=== PATIENT | female | born 1940 | race Caucasian/White ===

== ENCOUNTER 2022-03-19 08:01 | Inpatient (IN) | payer MEDICARE ==
[~2022-03-19] VITALS: Ht 165.1 cm; Wt 88.9 kg
[2022-03-19] MEDS ORDERED: ACETAMINOPHEN 500 MG TABLET ONE (08:14)
[2022-03-19] MEDS ORDERED: ONDANSETRON ODT 4MG TAB ONE (08:15)
[2022-03-19] MEDS ORDERED: ACETAMINOPHEN 500 MG TABLET PO ONE (08:30)
[2022-03-19 08:36] LABS: BASOPHILS % (AUTO) 0.4 % (0.0-5.0); EOSINOPHILS % (AUTO) 0.4 % (0.0-8.0); HEMATOCRIT 33.9 % (36-48); LYMPHOCYTES % (AUTO) 11.9 % (21.0-51.0); MEAN CORPUSCULAR HEMOGLOBIN 29.6 pg (27.0-33.0); MEAN CORPUSCULAR HGB CONC 34.2 g/dL (32.0-36.0); MEAN CORPUSCULAR VOLUME 86.5 fL (79-99); MONOCYTES % (AUTO) 8.8 % (3.0-13.0); NEUTROPHILS % (AUTO) 77.2 % (40.0-77.0); PLATELET COUNT (AUTO) 267 K/uL (130-400); RED BLOOD CELL COUNT(AUTO) 3.92 MIL/uL (4.00-5.50); RED CELL DISTRIBUTION WIDTH 13.5 % (11.0-15.5); WHITE BLOOD COUNT (AUTO) 15.6 K/uL (4.8-10.8)
[2022-03-19 08:57] LABS: CREATININE 1.1 mg/dL (0.5-1.5); POTASSIUM 3.6 mmol/L (3.5-5.1)
[2022-03-19 09:01] LABS: ALBUMIN 2.7 g/dL (3.5-5.0); TOTAL PROTEIN, SERUM 7.4 g/dL (6.0-8.3)
[2022-03-19] MEDS ORDERED: 0.9%NACL 1000ML 1,000 ML IV ONE ×2 (09:30→10:00)
[2022-03-19] MEDS ORDERED: IBUPROFEN 600 MG TABLET PO ONE (09:30)
[2022-03-19] MEDS ORDERED: CEFTRIAXONE 1G VIAL IVP STA (09:34)
[2022-03-19] MEDS ORDERED: SOLU-MEDROL 125MG VIAL IVP STA (09:34)
[2022-03-19] MEDS ORDERED: IPRATROPIUM 0.5 MG/2.5 ML INH IH STA (09:34)
[2022-03-19] MEDS ORDERED: AZITHROMYCIN 500MG+NS 250ML IVPB SCH (09:34)
[2022-03-19] MEDS ORDERED: ALBUTEROL 0.083% 2.5 MG/3 ML INH IH STA (09:34)
[2022-03-19] MEDS ORDERED: 0.9%NACL 1000ML 1,000 ML IV SCH (10:00)
[2022-03-19] MEDS ORDERED: ACETAMINOPHEN 500 MG TABLET PO PRN (10:30)
[2022-03-19] MEDS ORDERED: BUDESONIDE 0.5 MG/2 ML INH IH SCH (10:30)
[2022-03-19] MEDS ORDERED: ONDANSETRON 4MG INJ IVP PRN (10:30)
[2022-03-19 10:57] LABS: INR 0.99 (0.85-1.15); PROTHROMBIN TIME 10.8 SEC (9.6-11.6)
[2022-03-19 10:58] LABS: PARTIAL THROMBOPLASTIN TIME 23.7 SEC (26.3-35.5)
[2022-03-19] MEDS: Vitamin B Complex/Vit C/Folic Acid PO SCH (11:02)
[2022-03-19] MEDS: 0.9%NACL 1000ML 1,000 ML IV SCH (11:03)
[2022-03-19 11:15] LABS: THYROID STIMULATING HORMONE 2.62 uIU/mL (0.36-3.74)
[2022-03-19 11:42] LABS: CRP QUANTITATIVE 361.2 mg/L (0.00-9.0)
[2022-03-19] MEDS: ALBUTEROL 0.083% 2.5 MG/3 ML INH IH SCH ×3 (12:00→23:03)
[2022-03-19] MEDS ORDERED: MAGNESIUM 2GM PREMIX 50ML 50 ML IV SCH (12:00)
[2022-03-19] MEDS: IPRATROPIUM 0.5 MG/2.5 ML INH IH SCH ×3 (12:00→23:03)
[2022-03-19 12:01] LABS: HEMOGLOBIN A1C 6.5 % (4.0-6.0)
[2022-03-19] MEDS: CEFEPIME HCL 2 GM VIAL IVP SCH ×2 (12:55→20:33)
[2022-03-19] MEDS ORDERED: SIMV10TA97 PO (13:51)
[2022-03-19] MEDS ORDERED: LOSA1TAB37 PO (13:51)
[2022-03-19] MEDS ORDERED: LEVO50CA4 PO (13:51)
[2022-03-19 15:43] LABS: APPEARANCE,URINE CLOUDY (CLEAR); BILIRUBIN,URINE NEGATIVE (NEGATIVE); COLOR,URINE YELLOW (YELLOW); GLUCOSE, URINE (UA) NEGATIVE (NEGATIVE); KETONES,URINE 5 mg/dL (NEGATIVE); LEUKOCYTE ESTERASE ,URINE 500 Leu/uL (NEGATIVE); NITRATE,URINE NEGATIVE (NEGATIVE); OCCULT BLOOD,URINE MODERATE (NEGATIVE); PH,URINE 5.5 (5.0-8.0); PROTEIN,URINE 30 mg/dL (NEGATIVE); UROBILINOGEN,URINE 0.2 mg/dL (0.2-1.0)
[2022-03-19 15:46] LABS: BACTERIA,URINE RARE /HPF (None Seen); MUCUS,URINE RARE LPF (None Seen); SQUAMOUS EPITHELIAL CELL,UR FEW /HPF (0-2)
[2022-03-19] MEDS: SOLU-MEDROL 40MG VIAL IVP SCH (17:24)
[2022-03-19] MEDS: INSULIN HUMULIN R 100 UNIT/ML 3ML SQ SCH ×2 (17:25→20:34)
[2022-03-19 18:30] VITALS: BP 130/74
[2022-03-19] MEDS ORDERED: LIDOCAINE HCL-MPF 1% 2ML VIAL IV PRN (18:30)
[2022-03-19] MEDS ORDERED: POTASSIUM CHLORIDE 20MEQ/100ML 100 ML IV PRN (18:30)
[2022-03-19] MEDS ORDERED: POTASSIUM CHLORIDE 10% ELIXIR 20 MEQ/15 ML UDCUP PO PRN (18:30)
[2022-03-19] MEDS: BUDESONIDE 0.5 MG/2 ML INH IH SCH (19:09)
[2022-03-19 20:00] VITALS: BP 119/64
[2022-03-19] MEDS: SIMVASTATIN 10 MG TABLET PO SCH (20:33)
[2022-03-19] MEDS: KCL 20 MEQ ERTAB PO PRN (20:33)
[2022-03-20] VITALS (7 sets, daily range): BP systolic 116–142; BP diastolic 59–70
[2022-03-20] MEDS: SOLU-MEDROL 40MG VIAL IVP SCH ×3 (00:15→23:31)
[2022-03-20] MEDS: GUAIFENESIN-DM 200/20 MG 10 ML PO PRN ×2 (00:15→16:40)
[2022-03-20] MEDS: 0.9%NACL 1000ML 1,000 ML IV SCH ×2 (00:15→06:11)
[2022-03-20] MEDS: KCL 20 MEQ ERTAB PO PRN ×5 (00:16→21:25)
[2022-03-20] MEDS ORDERED: LEVOTHYROXINE 50 MCG TABLET ONE (04:58)
[2022-03-20 05:26] LABS: BASOPHILS % (AUTO) 0.2 % (0.0-5.0); HEMATOCRIT 30.4 % (36-48); MEAN CORPUSCULAR HEMOGLOBIN 29.8 pg (27.0-33.0); MEAN CORPUSCULAR HGB CONC 33.6 g/dL (32.0-36.0); MEAN CORPUSCULAR VOLUME 88.9 fL (79-99); MONOCYTES % (AUTO) 5.4 % (3.0-13.0); NEUTROPHILS % (AUTO) 85.5 % (40.0-77.0); PLATELET COUNT (AUTO) 257 K/uL (130-400); RED BLOOD CELL COUNT(AUTO) 3.42 MIL/uL (4.00-5.50); RED CELL DISTRIBUTION WIDTH 13.6 % (11.0-15.5); WHITE BLOOD COUNT (AUTO) 16.8 K/uL (4.8-10.8)
[2022-03-20 05:53] LABS: CREATININE 1.3 mg/dL (0.5-1.5); MAGNESIUM 2.4 mg/dL (1.80-2.40); POTASSIUM 3.1 mmol/L (3.5-5.1)
[2022-03-20] MEDS: LEVOTHYROXINE 50 MCG TABLET PO SCH (06:06)
[2022-03-20] MEDS: INSULIN HUMULIN R 100 UNIT/ML 3ML SQ SCH ×7 (06:07→20:14)
[2022-03-20] MEDS: IPRATROPIUM 0.5 MG/2.5 ML INH IH SCH ×4 (06:21→23:46)
[2022-03-20] MEDS: BUDESONIDE 0.5 MG/2 ML INH IH SCH ×2 (06:21→19:12)
[2022-03-20] MEDS: ALBUTEROL 0.083% 2.5 MG/3 ML INH IH SCH ×4 (06:22→23:47)
[2022-03-20] MEDS: ENOXAPARIN SODIUM 40 MG/0.4 ML SYRINGE SQ SCH (08:59)
[2022-03-20] MEDS: LOSARTAN 50 MG TABLET PO SCH (08:59)
[2022-03-20] MEDS: FAMOTIDINE 20MG TAB PO SCH ×2 (08:59→19:43)
[2022-03-20] MEDS ORDERED: AZITHROMYCIN 250 MG TABLET PO SCH (09:00)
[2022-03-20] MEDS ORDERED: NON-FORMULARY MEDICATION 1 EACH (Levothyroxine Sodium (Levothyroxine) 50 MCG) PO SCH (09:00)
[2022-03-20] MEDS: Vitamin B Complex/Vit C/Folic Acid PO SCH (11:03)
[2022-03-20] MEDS: CEFEPIME HCL 2 GM VIAL IVP SCH ×2 (11:03→23:31)
[2022-03-20] MEDS: SIMVASTATIN 10 MG TABLET PO SCH (19:43)
[2022-03-20] MEDS ORDERED: INSULIN GLARGINE 100 UNITS/ML 10 ML VIAL SQ SCH (21:00)
[2022-03-21 04:27] VITALS: BP 117/52
[2022-03-21 04:52] LABS: BASOPHILS % (AUTO) 0.3 % (0.0-5.0); HEMATOCRIT 30.3 % (36-48); LYMPHOCYTES % (AUTO) 5.2 % (21.0-51.0); MEAN CORPUSCULAR HEMOGLOBIN 29.5 pg (27.0-33.0); MEAN CORPUSCULAR HGB CONC 33.3 g/dL (32.0-36.0); MEAN CORPUSCULAR VOLUME 88.6 fL (79-99); MONOCYTES % (AUTO) 4.9 % (3.0-13.0); NEUTROPHILS % (AUTO) 85.2 % (40.0-77.0); PLATELET COUNT (AUTO) 330 K/uL (130-400); RED BLOOD CELL COUNT(AUTO) 3.42 MIL/uL (4.00-5.50); RED CELL DISTRIBUTION WIDTH 14.1 % (11.0-15.5); WHITE BLOOD COUNT (AUTO) 21.5 K/uL (4.8-10.8)
[2022-03-21 05:14] LABS: CREATININE 1.4 mg/dL (0.5-1.5); MAGNESIUM 2.2 mg/dL (1.80-2.40); POTASSIUM 4.1 mmol/L (3.5-5.1)
[2022-03-21] MEDS: LEVOTHYROXINE 50 MCG TABLET PO SCH (05:21)
[2022-03-21] MEDS: INSULIN HUMULIN R 100 UNIT/ML 3ML SQ SCH ×4 (05:33→11:30)
[2022-03-21] MEDS: ALBUTEROL 0.083% 2.5 MG/3 ML INH IH SCH ×2 (07:31→11:19)
[2022-03-21] MEDS: BUDESONIDE 0.5 MG/2 ML INH IH SCH (07:31)
[2022-03-21] MEDS: IPRATROPIUM 0.5 MG/2.5 ML INH IH SCH ×2 (07:31→11:20)
[2022-03-21] MEDS ORDERED: AMOX1TAB16 PO (07:39)
[2022-03-21] MEDS ORDERED: PRED10TA3 PO (07:39)
[2022-03-21 08:00] VITALS: BP 153/78
[2022-03-21] MEDS ORDERED: ZOSYN 3.375GM +NS 50ML IV SCH (08:00)
[2022-03-21] MEDS: LOSARTAN 50 MG TABLET PO SCH (08:28)
[2022-03-21] MEDS: FAMOTIDINE 20MG TAB PO SCH (08:28)
[2022-03-21] MEDS: ENOXAPARIN SODIUM 40 MG/0.4 ML SYRINGE SQ SCH (08:29)
[2022-03-21] MEDS: GUAIFENESIN-DM 200/20 MG 10 ML PO PRN (08:40)
[2022-03-21] MEDS ORDERED: BENZONATATE 100 MG CAPSULE PO ONE (10:43)
[2022-03-21] MEDS: Vitamin B Complex/Vit C/Folic Acid PO SCH (10:45)
[2022-03-21] MEDS ORDERED: PRED20TA3 PO (10:53)
[2022-03-21] MEDS ORDERED: BENZONATATE 100 MG CAPSULE PO PRN (11:00)
[2022-03-21 11:56] VITALS: BP 150/74
== END 2022-03-21 13:00 | disposition home or self-care (01) | DRG 871 ==
LOC: EDH 08:01 → EDHIP 10:27 → 4DH 17:52
PROVIDERS: ADMIT Hospitalist; ATTEND Hospitalist
PROC: 5A09357 Assistance with Respiratory Ventilation, Less than 24 Consecutive Hours, Continuous Positive Airway Pressure (ICD-10-PCS; principal; 2022-03-20)
PROC: 5A09357 Assistance with Respiratory Ventilation, Less than 24 Consecutive Hours, Continuous Positive Airway Pressure (ICD-10-PCS; 2022-03-21)
DX: A41.9 Sepsis, unspecified organism (principal); J18.9 Pneumonia, unspecified organism; J96.01 Acute respiratory failure with hypoxia; E44.0 Moderate protein-calorie malnutrition; J44.1 Chronic obstructive pulmonary disease with (acute) exacerbation; J44.0 Chronic obstructive pulmonary disease with (acute) lower respiratory infection; E87.1 Hypo-osmolality and hyponatremia; Z20.822 Contact with and (suspected) exposure to COVID-19; E11.9 Type 2 diabetes mellitus without complications; E03.9 Hypothyroidism, unspecified; E66.9 Obesity, unspecified; E78.5 Hyperlipidemia, unspecified; E83.42 Hypomagnesemia; E86.1 Hypovolemia; G47.33 Obstructive sleep apnea (adult) (pediatric); I10 Essential (primary) hypertension; K75.9 Inflammatory liver disease, unspecified; Z85.828 Personal history of other malignant neoplasm of skin; Z68.32 Body mass index [BMI] 32.0-32.9, adult
CPT/HCPCS: 36415; 71045; 71250; 80048; 80053; 81001; 82550; 82948; 83036; 83605; 83735; 84132; 84145; 84443; 85025; 85610; 85651; 85730; 86140; 86738; 87040; 87071; 87077; 87088; 87186; 87205; 87449; 87635; 87804; 93005; 93306; 94640; 94660; 94664; 94667; 96361; 96374; 99291; C9803; G0378; J0456; J0692; J0696; J1650; J1815; J2543; J2920; J2930; J3475; J7030